=== PATIENT | female | born 1960 | race Caucasian/White ===

== ENCOUNTER 2017-09-27 15:36 | Inpatient (IN) | payer MEDICAID ==
[~2017-09-27] VITALS: Ht 142.2 cm; Wt 75.0 kg
[2017-09-27 20:48] LABS: PLATELET COUNT 190 x10^3mcL (130-400)
[2017-09-27 20:51] LABS: CREATININE SERUM 1.3 mg/dL (0.6-1.0); POTASSIUM SERUM 5.5 mmol/L (3.5-5.1)
[2017-09-27 20:55] LABS: TOTAL PROTEIN, SERUM 7.5 g/dL (6.4-8.2)
[2017-09-27 20:56] LABS: RED CELL DISTRIBUTION WIDTH 17.1 % (11.5-14.5)
[2017-09-27 20:58] LABS: ALBUMIN 2.3 g/dL (3.4-5.0); BILIRUBIN TOTAL 5.3 mg/dL (0.20-1.00)
[2017-09-27 21:17] LABS: BAND NEUTROPHIL 3 % (0-10); BASOPHIL 0 % (0-2); MONOCYTE 5 % (0-7); SEGMENTED NEUTROPHILS 67 % (37-75)
[2017-09-27 21:19] LABS: rbc morphology (normal/abnorm) ABNORMAL (NORMAL)
[2017-09-27] MEDS ORDERED: METFORMIN500 M1 (22:30)
[2017-09-27] MEDS ORDERED: ALDACTONE25 MG (22:31)
[2017-09-27 22:56] LABS: UA SPECIFIC GRAVITY 1.025 (1.005-1.035); microscopic required? YES; urine erythrocyte 1+ (NEGATIVE)
[2017-09-28 01:39] LABS: MAGNESIUM 2.2 mg/dL (1.8-2.4); PHOSPHOROUS 4.2 mg/dL (2.5-4.9)
[2017-09-28 01:44] LABS: CHOLESTEROL/HDL RATIO 41.4
[2017-09-28 01:49] VITALS: BP 129/70
[2017-09-28 01:51] VITALS: Ht 142.2 cm; Wt 75.0 kg
[2017-09-28] MEDS ORDERED: PYRIDOXINE HCL25 MG PO (01:54)
[2017-09-28] MEDS ORDERED: ALDACTONE25 MG PO (01:54)
[2017-09-28] MEDS ORDERED: BENAZEPRIL HYDR10 M1 PO (01:54)
[2017-09-28] MEDS ORDERED: METFORMIN HCL500 MG PO (01:55)
[2017-09-28 02:54] LABS: AMPHETAMINE QUAL UR NONE DETECTED (NEG <=1000)
[2017-09-28 05:30] VITALS: BP 106/58
[2017-09-28 06:00] VITALS: BP 104/57
[2017-09-28 06:30] LABS: PLATELET COUNT 156 x10^3mcL (130-400)
[2017-09-28 06:35] LABS: BILIRUBIN DIRECT 3.45 mg/dL (0.0-0.2); BILIRUBIN TOTAL 4.44 mg/dL (0.20-1.00); CALCIUM 8.7 mg/dL (8.5-10.1); CARBON DIOXIDE 20.9 mmol/L (21-32); CREATININE SERUM 1.3 mg/dL (0.6-1.0); TOTAL PROTEIN, SERUM 6.4 g/dL (6.4-8.2)
[2017-09-28 07:45] LABS: RED CELL DISTRIBUTION WIDTH 17.7 % (11.5-14.5)
[2017-09-28 10:01] VITALS: BP 105/63
[2017-09-28 12:46] LABS: BAND NEUTROPHIL 3 % (0-10); SEGMENTED NEUTROPHILS 65 % (37-75)
[2017-09-28 12:47] LABS: ATYPICAL LYMPH 1 %; MONOCYTE 4 % (0-7)
[2017-09-28 12:48] LABS: rbc morphology (normal/abnorm) ABNORMAL (NORMAL)
[2017-09-28 16:44] VITALS: BP 113/68
[2017-09-28 21:03] VITALS: BP 110/59
[2017-09-29 05:59] VITALS: BP 108/62
[2017-09-29 07:26] LABS: PLATELET COUNT 148 x10^3mcL (130-400)
[2017-09-29 07:46] LABS: CALCIUM 8.5 mg/dL (8.5-10.1); CARBON DIOXIDE 18.3 mmol/L (21-32); CREATININE SERUM 1.3 mg/dL (0.6-1.0); MAGNESIUM 2.1 mg/dL (1.8-2.4); PHOSPHOROUS 4.2 mg/dL (2.5-4.9)
[2017-09-29 08:49] LABS: RED CELL DISTRIBUTION WIDTH 17.9 % (11.5-14.5)
[2017-09-29 09:08] LABS: ATYPICAL LYMPH 1 %; BAND NEUTROPHIL 1 % (0-10); BASOPHIL 1 % (0-2); MONOCYTE 10 % (0-7); SEGMENTED NEUTROPHILS 67 % (37-75)
[2017-09-29 09:10] LABS: rbc morphology (normal/abnorm) ABNORMAL (NORMAL)
[2017-09-29 09:11] LABS: PLATELET MORPHOLOGY PLATELETS DECREASED
[2017-09-29 09:43] VITALS: BP 108/58
[2017-09-29 15:15] VITALS: BP 111/68
[2017-09-29 17:20] VITALS: BP 106/65
[2017-09-29 21:28] VITALS: BP 122/67
[2017-09-30 05:53] VITALS: BP 108/57
[2017-09-30 06:28] LABS: PLATELET COUNT 177 x10^3mcL (130-400)
[2017-09-30 06:37] LABS: MAGNESIUM 2.1 mg/dL (1.8-2.4); PHOSPHOROUS 4.4 mg/dL (2.5-4.9)
[2017-09-30 06:38] LABS: BILIRUBIN TOTAL 4.16 mg/dL (0.20-1.00); CALCIUM 8.5 mg/dL (8.5-10.1); CARBON DIOXIDE 20.4 mmol/L (21-32); CREATININE SERUM 1.4 mg/dL (0.6-1.0); IRON 85 ug/dL (50-170); POTASSIUM SERUM 4.7 mmol/L (3.5-5.1); TOTAL IRON BINDING CAPACITY 286 ug/dL (250-450); TOTAL PROTEIN, SERUM 6.5 g/dL (6.4-8.2)
[2017-09-30 06:41] LABS: ALBUMIN 2.1 g/dL (3.4-5.0)
[2017-09-30 06:51] LABS: RED BLOOD CELLS 2.91 M/mm3 (4.10-5.10)
[2017-09-30 08:11] LABS: RED CELL DISTRIBUTION WIDTH 18.3 % (11.5-14.5)
[2017-09-30 09:40] LABS: BAND NEUTROPHIL 2 % (0-10); BASOPHIL 0 % (0-2); MONOCYTE 6 % (0-7); SEGMENTED NEUTROPHILS 66 % (37-75)
[2017-09-30 09:41] LABS: PLATELET MORPHOLOGY LARGE PLATELET SEEN; rbc morphology (normal/abnorm) ABNORMAL (NORMAL); target cell (codocyte) 1+
[2017-09-30 10:41] VITALS: BP 107/77
[2017-09-30 12:25] VITALS: BP 107/77
[2017-09-30] MEDS ORDERED: LEVAQUIN750 MG PO (12:42)
[2017-09-30] MEDS ORDERED: LAC PO (12:43)
[2017-09-30] MEDS ORDERED: LASIX20 MG PO (15:01)
== END 2017-09-30 16:30 | disposition home or self-care (01) | DRG 279 ==
LOC: ED 15:36 → MU 09-28 00:03 → DU 09-28 00:03 → MU 09-28 01:28
PROVIDERS: Emergency Medicine; ADMIT Family Medicine Sports Medicine
PROC: 0FB13ZX Excision of Right Lobe Liver, Percutaneous Approach, Diagnostic (ICD-10-PCS; principal; 2017-09-29)
DX: K72.00 Acute and subacute hepatic failure without coma (principal); N17.0 Acute kidney failure with tubular necrosis; E43 Unspecified severe protein-calorie malnutrition; E87.0 Hyperosmolality and hypernatremia; R18.8 Other ascites; C22.9 Malignant neoplasm of liver, not specified as primary or secondary; E87.5 Hyperkalemia; E86.0 Dehydration; N39.0 Urinary tract infection, site not specified; I10 Essential (primary) hypertension; E11.9 Type 2 diabetes mellitus without complications; E78.5 Hyperlipidemia, unspecified; E66.9 Obesity, unspecified; Z68.39 Body mass index [BMI] 39.0-39.9, adult; Z79.84 Long term (current) use of oral hypoglycemic drugs
CPT/HCPCS: 82962; 83880; C1894; J0696; J1940; J2001; J2250; J2310; J3010; J3490; J7030; J7040; J7050; Q0092; Q9967